=== PATIENT | female | born 1970 | race Caucasian/White ===

== ENCOUNTER 2022-06-11 06:26 | Day surgery (SDC) | payer MEDICAID ==
[~2022-06-11] VITALS: Ht 157.5 cm; Wt 99.3 kg
[~2022-06-11 06:26] MED LIST: IBUP-2029 PO
[2022-06-11 06:55] LABS: UCG SCREEN NEGATIVE
[2022-06-11] MEDS ORDERED: LACTATED RINGERS 1,000 ML IV SCH (07:00)
[2022-06-11] MEDS ORDERED: SUCCINYLCHOLINE CHLORIDE 200MG/10ML IV ONE (09:27)
[2022-06-11] MEDS ORDERED: CEFAZOLIN SODIUM 1000MG/VIAL ONE (09:27)
[2022-06-11] MEDS ORDERED: KETOROLAC 30MG/ML VIAL ONE (09:28)
[2022-06-11] MEDS ORDERED: METOCLOPRAMIDE HCL 10MG/2ML VIAL ONE (09:28)
[2022-06-11] MEDS ORDERED: ONDANSETRON HCL 4MG/2ML INJ ONE (09:28)
[2022-06-11] MEDS ORDERED: DEXAMETHASONE 4MG/ML 1ML VIAL ONE (09:29)
[2022-06-11] MEDS ORDERED: PROPOFOL 200MG/20ML VIAL IV ONE (09:29)
[2022-06-11] MEDS ORDERED: MIDAZOLAM HCL 2 MG/2 ML VIAL ONE (09:30)
[2022-06-11] MEDS ORDERED: FENTANYL CITRATE/PF 50MCG/ML 2ML VIAL ONE (09:30)
[2022-06-11] MEDS ORDERED: LIDOCAINE HCL 1% 10 MG/ML 10ML VIAL ONE (09:31)
[2022-06-11] MEDS ORDERED: ONDANSETRON HCL 4MG/2ML INJ IV PRN (11:00)
[2022-06-11] MEDS ORDERED: MORPHINE SULFATE 2 MG/ML CPJ (NOT FOR IM USE) IV PRN (11:00)
[2022-06-11] MEDS ORDERED: SKIN ADHESIVE 0.7 GM EA TOP ONE (14:26)
[2022-06-11] MEDS ORDERED: BUPIVACAINE HCL/PF 0.5% (5MG/ML) 10ML ONE (14:26)
== END 2022-06-11 11:50 | disposition home or self-care (01) ==
LOC: OR 06:26
PROVIDERS: ATTEND Surgery
DX: R22.1 Localized swelling, mass and lump, neck (principal); Z79.899 Other long term (current) drug therapy; Z98.890 Other specified postprocedural states; Z20.822 Contact with and (suspected) exposure to COVID-19
CPT/HCPCS: 11426; 81025; 87426; 88304; C9803; J0330; J0690; J1100; J1885; J2250; J2405; J2704; J2765; J3010; J3490